=== PATIENT | female | born 1990 | race Caucasian/White ===

== ENCOUNTER 2023-09-12 19:32 | Emergency (ER) | payer BC, SELFPAY ==
[2023-09-12 19:33] VITALS: BP 127/76; PULSE 89; RESP 16; TEMP 36.6; O2SAT 100; BMI 25.7
--- NOTE | 2023-09-12 20:20 | US_ITS ---
We are attempting to reach an attending provider to discuss findings. An addendum with communication details will be sent when the communication is complete. INDICATION: Vaginal bleeding with and RLQ pain EXAMINATION: Ultrasound US OB Transvaginal COMPARISON: None. FINDINGS: 124 grayscale ultrasound images of the pelvis obtained transvaginally. In addition dedicated ovarian color Doppler and Doppler waveform interrogation was performed. UTERUS: Uterus measures : 10.4 x 5.8 x 4.2 cm. Endometrial thickness of 1.1 cm. Trace amount of endometrial fluid as well. Myometrium is unremarkable. ADNEXA: Flow is documented to bilateral ovaries by color Doppler as well as Doppler waveform. Large anechoic 2.4 cm right ovarian lesion consistent with ovarian cyst. Adjacent to this there is a rounded, mildly echogenic, thick-walled lesion containing punctate central cystic focus, suspicious for ectopic . Left ovary is unremarkable. No significant free fluid. US/Transvaginal w/Preg US IMPRESSION: No intrauterine . Adjacent to right ovary, there is a rounded, mildly echogenic, thick-walled lesion containing punctate central cystic focus, suspicious for ectopic . No definite pole appreciated. Electronically Signed: Dionisio Kamara MD at 21:59 EST ,
--- NOTE | 2023-09-12 20:23 | EDS_ITS ---
HPI HPI - Female History of Present Illness Chief Complaint: Vag Bld, Preg Narrative Narrative: 32-year-old female G4, P2 at approximately 4 weeks and 6 days gestation presents with vaginal bleeding and spotting that she had today. She states she did 4 home tests that were positive. She called her [employer] office, and sees the regional economic liaison Carlie Merida. She had laboratory work drawn today, which was basically hormone level. Over time, she developed more vaginal bleeding, less than her usual menses, and pain in her right pelvic area. She denies any fevers or chills, no nausea or vomiting, no other symptoms. She did state that she had upper respiratory infection type symptoms previously and is not sure if this had anything to do with it. PFSH PFSH Home Medications hydrocodone-acetaminophen 5-325mg 5mg-325mg 1 tab PO Q6H PRN PRN Pain 3 days #12 TABLETS 09/12/23 [Rx Last Taken Unknown] Allergy/AdvReac Type Severity Reaction Status Date / Time No Known Allergies Allergy Verified 09/12/23 19:35 Social History Smoking Status: Never smoker ROS ROS ED ROS Narrative Constitutional: No fever, no chills. HEENT: No sore throat. No neck pain. No loss of vision. No rhinorrhea. Cardiovascular: No chest pain. No palpitations. No pedal edema. Respiratory: No cough, no shortness of breath. Abdominal: Right pelvic/abdominal pain. No nausea. No vomiting. Genitourinary: No dysuria. No hematuria. Positive vaginal bleeding. Musculoskeletal: No myalgias. No arthralgias. Neurologic: No headaches. No dizziness. No lightheadedness. Skin: No rash. No change in color. Psychiatric: No depression. No anxiety. EXAM Physical Exam Narrative Exam Narrative: Afebrile. Vital signs noted. HEENT: Normocephalic. Atraumatic. PERRL, EOMI. Neck soft and supple. No point tenderness or step off. Cardiovascular: Regular rate and rhythm. No murmurs, rubs, or gallops appreciated. Respiratory: No tachypnea. Lungs clear to auscultation bilaterally. Gastrointestinal: Abdomen soft, with mild tenderness in right pelvic area. With normoactive bowel sounds. No rebound or guarding. Genitourinary: Chaperoned pelvic examination revealed normal external genitalia. Speculum examination revealed a small amount of blood, old and brown in color with small clots. Os appeared closed. Bimanual examination did reveal os to be closed with mild tenderness to palpation in the right adnexa. Neurological: Awake. Alert. Nonfocal, nonlateralizing. Skin: No rash. Normal color. No pallor. Musculoskeletal: No pedal edema. Full range of motion extremities. Const Vital Signs: 09/12/23 19:33 09/12/23 21:33 Temperature 98 F Temperature Source Temporal Pulse Rate 89 Respiratory Rate 16 16 Blood Pressure 127/76 H Blood Pressure Mean 93 Pulse Ox 100 Oxygen Delivery Method Room Air MDM MDM MDM Narrative Medical decision making narrative: In the differential diagnosis is ectopic versus threatened miscarriage. I have lower concern for acute appendicitis based on her clinical examination and the history and physical is not supportive of this. I do feel that she will require more workup. I reviewed her laboratory work from today. Her beta hCG is only just above 1100. She was told that it would be difficult to see anything intrauterine as her quantitative measurement is below 1800. Additionally, she thinks she may be O+ and her blood type, but ABO Rh will be obtained because after reviewing the EMR there is no evidence that it has been done in the past. I will obtain a CBC and CMP as well, and I do feel ultrasound is indicated. Pelvic exam will also be performed. Chaperoned pelvic examination revealed small clots and a small amount of old blood but no pooling of blood in the vaginal vault. Os did appear closed. This was on bimanual examination. I reviewed her laboratory work and she has a white count normal at 10.7, hemoglobin normal at 12.2, platelet count 205. CMP was obtained and chloride is 109, slightly elevated nonspecific. Glucose appropriately elevated at 100. AST is low at 11 with ALT of 15 and alk phos 61. Urinalysis is negative for infection. I reviewed the radiology report for the ultrasound, transvaginal, which shows no evidence of intrauterine . While she does have an approximate 2.4 cm ovarian cyst on the right, there is a cystlike lesion that is extraovarian adjacent to this concerning for ectopic . I did receive a call from the radiologist regarding this finding. As I had reviewed her blood bank test, she is O+. I do not feel she requires RhoGAM. I discussed the patient with Carlie Merida, certified nurse regional economic liaison, who reviewed the images and also reviewed them with Dr. Null. I received a phone call from Dr. Null with [employer] who states that the patient is a good candidate for methotrexate. I discussed the risks and benefits with the patient and she acknowledges an understanding. She was told not to eat any folate, or green leafy vegetables, and not to take any vitamins. She was also told that she may require an additional dose of methotrexate. I did administer the 2 shots as the dose was calculated by pharmacy. She was told to call the office tomorrow for follow-up and that she will require repeat blood work on days 4 and 7 to ensure downtrending hCGs. She was given 1 [place] tablet here in the emergency department, additionally I wrote her prescription for the next 3 days for her ectopic . I do not feel that she requires admission or observation at this time, but stressed the importance of close follow-up with the [employer]. Disposition is discharged in stable condition. History & Record Review Discussion w/independent historian: Patient and Family () Additional record(s) reviewed:: Prior ED visit Lab Data Attestation: I reviewed the patient's lab results. Labs: Laboratory Results - last 24 hr 09/12/23 09/12/23 20:30 20:35 WBC 10.7 RBC 4.26 Hgb 12.2 Hct 36.4 L MCV 85.4 MCH 28.6 MCHC 33.5 RDW Std Deviation 40.9 RDW Coeff of Doug 13.2 Plt Count 205 MPV 11.5 Immature Gran % (Auto) 0.400 Neut % (Auto) 69.4 Lymph % (Auto) 19.7 [place] % (Auto) 10.0 Eos % (Auto) 0.3 Baso % (Auto) 0.2 Absolute Neuts (auto) 7.4 Absolute Lymphs (auto) 2.10 Nucleated RBC % 0 Sodium 137 Potassium 3.6 Chloride 109 H Carbon Dioxide 25.0 Anion Gap 3 L BUN 7 Creatinine 0.63 Estim Creat Clear Calc 108.01 Est GFR (MDRD) Af Amer 142 Est GFR (MDRD) Non-Af 118 BUN/Creatinine Ratio 11.1 Glucose 100 Calcium 8.9 Total Bilirubin 0.50 AST 11 L ALT 15 Alkaline Phosphatase 61 Total Protein 7.9 Albumin 3.7 Globulin 4.2 Albumin/Globulin Ratio 0.9 Urine Color Yellow Urine Clarity Clear Urine pH 6.0 Ur Specific [place] 1.020 Urine Protein 15 H Urine Glucose (UA) Normal Urine Ketones 5 H Urine Occult Blood 50 H Urine Nitrite Negative Urine Bilirubin Negative Urine Urobilinogen 1 H Ur Leukocyte Esterase 25 H Urine RBC 0-5 SEEN Urine WBC 0-5 SEEN Ur Squamous Epith Cells 0-5 SEEN Urine Bacteria RARE Urine Mucus 1+ Radiography Diagnostic Testing: Clinical Impression(s) from Imaging Studies Obstetrics Ultrasound 09/12/23 20:20 IMPRESSION: No intrauterine . Adjacent to right ovary, there is a rounded, mildly echogenic, thick-walled lesion containing punctate central cystic focus, suspicious for ectopic . No definite pole appreciated. Electronically Signed: Dionisio Kamara MD at 21:59 EST , ADDENDUM: 09/12/232220 IMPRESSION: No intrauterine . Adjacent to right ovary, there is a rounded, mildly echogenic, thick-walled lesion containing punctate central cystic focus, suspicious for ectopic . No definite pole appreciated. N.B. : The above Results were Read Back by Dionisio Kamara MD to Tommy Ca MD, and understanding confirmed on 09/12/2023 22:14:33 (ET). Electronically Signed: Dionisio Kamara MD at 21:59 EST , ADDENDUM: 09/12/232221 IMPRESSION: undefined Discharge Plan Triage Chief Complaint: Vag Bld, Preg ED Provider: Tommy Ca Dx/Rx/DC Orders Clinical Impression: Ectopic Instructions: ED Methotrexate for Ectopic ... Prescriptions: New hydrocodone-acetaminophen 5-325 mg tablet 1 tab PO Q6H PRN PRN (Reason: Pain) 3 Days Qty: 12 0RF Primary Care Provider: Care Physician,No Primary Referrals: Meka Judd DO [Med Staff - Active Staff] - 1 Day Care Physician,No Primary [Primary Care Provider] - Activity Restrictions/Additional Instructions: Call the office of Dr. Null and Carlie Merida tomorrow. You will require additional blood work on days 4 and 7. Disposition Disposition: Home, Self Care
[2023-09-12 20:49] LABS: Absolute Neutrophil Count 7.4 X10^3/uL (2.0-7.7); Basophil# 0.02 X10^3/uL; Basophil% 0.2 % (0-1); Eosinophil# 0.03 X10^3/uL; Eosinophils% 0.3 % (0-5); Hematocrit 36.4 % (37-47); Hemoglobin 12.2 g/dL (12.0-15.0); Lymphocyte % 19.7 % (19-41); Mean Corp Hgb Conc 33.5 g/dL (32-36); Mean Corpuscular Hgb 28.6 pg (27.0-32.0); Mean Corpuscular Volume 85.4 fL (81-99); Mean Platelet Vol. 11.5 fl (6.2-12.0); Monocyte# 1.07 X10^3/uL; NRBC Flagged by Analyzer 0 % (0-5); Neutrophil # 7.42 X10^3/uL (2.7-7.7); Neutrophil % 69.4 % (47-70); Platelet Count 205 K/mm3 (150-450); RBC Distribution Width CV 13.2 % (11.6-14.6); RBC Distribution Width SD 40.9 fl (35.1-43.9); Red Blood Count 4.26 M/mm3 (4.2-5.4); White Blood Count 10.7 K/mm3 (4.4-11.0)
[2023-09-12 21:04] LABS: ALB/GLOB Ratio 0.9 RATIO (0.9-2.4); AST(SGOT) 11 U/L (15-37); Alanine Aminotransfer ALT/SGPT 15 U/L (13-56); Albumin, Serum 3.7 g/dL (3.2-5.0); Alkaline Phosphatase 61 U/L (45-117); Anion Gap 3 (5-15); BUN 7 mg/dL (7-18); BUN/Creat Ratio 11.1 RATIO (10-20); Calcium,Total 8.9 mg/dL (8.5-10.1); Chloride 109 mmol/L (98-107); Creatinine, Serum 0.63 mg/dL (0.55-1.02); EST Glomerular Filtration Rate 118 mL/min (>60); Est Glom Filt Rate - Afr Amer 142 mL/min (>60); Estimated Creatinine Clearance 108.01 ml/min; Globulin 4.2 g/dL (2.2-4.2); Glucose 100 mg/dL (74-106); Potassium 3.6 mmol/L (3.5-5.1); Protein, Total 7.9 g/dL (6.4-8.2); Sodium Level 137 mmol/L (136-145)
[2023-09-12 21:16] LABS: Color, Urine Yellow (Yellow); Glucose, Dipstick Normal (Normal); Ketone-Dipstick 5 mg/dl (Negative); Leukocyte Esterase-Dipstick 25 /ul (Negative); Nitrite-Dipstick Negative (Negative); Occult Blood-Urine 50 /ul (Negative); Protein-Dipstick 15 mg/dl (Negative); Urine Bilirubin Dipstick Negative (Negative); Urine Clarity Clear (Clear); Urine Urobilinogen 1 mg/dl (Normal)
[2023-09-12 21:22] LABS: Bacteria RARE /hpf (None Seen); Mucous, Urine 1+ /hpf (<or=2+); Red Blood Cells-Urine 0-5 SEEN /hpf (0-5); Squamous Epithelial Cells - UA 0-5 SEEN /hpf (5-10); White Blood Cells 0-5 SEEN /hpf (0-5)
[2023-09-12 21:33] VITALS: RESP 16
[2023-09-12] MEDS: 0.9% Normal Saline (1000mL) 1,000 ML 1000 ML IV (22:45)
[2023-09-12] MEDS: HYDROcodone Bitartrate/Apap 5/325 Tablet PO (22:46)
[2023-09-12 23:00] VITALS: RESP 16
== END 2023-09-13 00:23 | disposition home or self-care (01) ==
PROVIDERS: Emergency Provider Emergency Medicine; Visit Provider Emergency Medicine
DX: O00.201 Right ovarian pregnancy without intrauterine pregnancy (principal)
CPT/HCPCS: 76817; 80053; 81001; 85025; 86900; 86901; 96360; 96372; 99283; J7030; A4216; J9250

== ENCOUNTER → 2023-09-12 | Outpatient (CLI) | payer BC, SELFPAY ==
[2023-09-12 12:25] LABS: hCG Titer Quant., Serum 1126 mIU/mL (1-3)
== END | disposition home or self-care (01) ==
LOC: LAB 10:54
PROVIDERS: Referring Provider Registered Nurse; Visit Provider Registered Nurse
DX: N92.0 Excessive and frequent menstruation with regular cycle (principal)
CPT/HCPCS: 36415; 84702

== ENCOUNTER → 2023-09-15 | Outpatient (CLI) | payer BC, SELFPAY ==
[2023-09-15 12:05] LABS: hCG Titer Quant., Serum 821 mIU/mL (1-3)
== END | disposition home or self-care (01) ==
LOC: LAB 10:06
PROVIDERS: Referring Provider Registered Nurse; Visit Provider Registered Nurse
DX: O00.90 Unspecified ectopic pregnancy without intrauterine pregnancy (principal); O99.891 Other specified diseases and conditions complicating pregnancy; N92.0 Excessive and frequent menstruation with regular cycle
CPT/HCPCS: 36415; 84702

== ENCOUNTER → 2023-09-19 | Outpatient (CLI) | payer BC, SELFPAY ==
--- NOTE | 2023-09-19 09:02 | US_ITS ---
STUDY: FIRST TRIMESTER OBSTETRICAL ULTRASOUND REASON FOR EXAM: Female, 32 years old follow-up ectopic LMP: August 09, 2023. TECHNIQUE: Transvaginal TECHNICAL QUALITY: Adequate. PRIOR ULTRASOUND: Comparison is made with prior examination dated September 12, 2023. FINDINGS: There is an extrauterine (ectopic) gestational sac. There is no demonstrated yolk sac. The placenta is non-visualized. There is no demonstrated embryo ( pole). The estimated gestation age (EGA) by LMP is 5 weeks, 6 days. The estimated date of delivery (JASIEL) by LMP is May 15, 2024 The uterus measures 9 cm x 6 cm x 3.7 cm. There is no demonstrated uterine fibroid. The cervix is closed. The right ovary measures 4.7 cm x 3.6 x 2.6 cm. Persistent right adnexal mass measuring 4.2 cm x 3.5 cm x 3 cm. This is suggestive of an ectopic . There is also evidence of a 2.1 cm x 2 cm x 1.5 cm cyst. The left ovary measures 2.8 cm x 2.3 x 2 x 1.5 cm. There is no left ovarian cyst. There is no visualized left adnexal mass or complex lesion. There is a moderate amount of fluid in the cul de sac. US/Transvaginal w/Preg US IMPRESSION: Persistent solid mass in the right adnexa which has increased in size. This is suggestive of progressive ectopic . Moderate amount of free fluid in the pelvis. Electronically Signed: Dom Hand MD at 10:46 EST ,
[2023-09-19 10:35] LABS: hCG Titer Quant., Serum 428 mIU/mL (1-3)
== END | disposition home or self-care (01) ==
PROVIDERS: Registered Nurse; Referring Provider Obstetrics & Gynecology; Visit Provider Obstetrics & Gynecology
DX: O00.90 Unspecified ectopic pregnancy without intrauterine pregnancy (principal)
CPT/HCPCS: 36415; 76817; 84702

== ENCOUNTER → 2023-09-27 | Outpatient (CLI) | payer BC, SELFPAY ==
[2023-09-27 13:36] LABS: hCG Titer Quant., Serum 58 mIU/mL (1-3)
== END | disposition home or self-care (01) ==
LOC: LAB 11:25
PROVIDERS: Referring Provider Obstetrics & Gynecology; Visit Provider Obstetrics & Gynecology
DX: O00.90 Unspecified ectopic pregnancy without intrauterine pregnancy (principal)
CPT/HCPCS: 36415; 84702

== ENCOUNTER → 2023-10-04 | Outpatient (CLI) | payer BC, SELFPAY ==
[2023-10-04 12:14] LABS: Bacteria 0 SEEN /hpf (None Seen); Mucous, Urine 0 SEEN /hpf (<or=2+); Red Blood Cells-Urine 0 SEEN /hpf (0-5)
[2023-10-04 13:23] LABS: Color, Urine Yellow (Yellow); Glucose, Dipstick Normal (Normal); Ketone-Dipstick Negative (Negative); Leukocyte Esterase-Dipstick Negative /ul (Negative); Nitrite-Dipstick Negative (Negative); Occult Blood-Urine 150 /ul (Negative); Protein-Dipstick Negative (Negative); Urine Bilirubin Dipstick Negative (Negative); Urine Clarity Clear (Clear); Urine Urobilinogen Normal (Normal)
[2023-10-04 13:31] LABS: Squamous Epithelial Cells - UA 0-5 SEEN /hpf (5-10); White Blood Cells 0-5 SEEN /hpf (0-5)
[2023-10-04 13:48] LABS: hCG Titer Quant., Serum 8 mIU/mL (1-3)
== END | disposition home or self-care (01) ==
LOC: LAB 11:57
PROVIDERS: Advanced Practice Midwife; Referring Provider Nurse Practitioner Women's Health; Visit Provider Nurse Practitioner Women's Health
DX: O00.90 Unspecified ectopic pregnancy without intrauterine pregnancy (principal); O99.891 Other specified diseases and conditions complicating pregnancy; M54.50 Low back pain, unspecified; R30.0 Dysuria
CPT/HCPCS: 36415; 81001; 84702; 87086

== ENCOUNTER → 2023-10-07 | Outpatient (CLI) | payer BC, SELFPAY ==
--- NOTE | 2023-10-07 13:26 | US_ITS ---
STUDY: FIRST TRIMESTER OBSTETRICAL ULTRASOUND REASON FOR EXAM: Female, 32 years old pelvic and back pain, recent ectopic LMP: 08/09/2023 TECHNIQUE: Transvaginal TECHNICAL QUALITY: Adequate. PRIOR ULTRASOUND: 09/12/2023, 09/19/2023 FINDINGS: There is no demonstrated intrauterine gestational sac. A previously noted ectopic in the right adnexal region has changed in size since the previous study as it again measures approximately 5.1 x 4.6 x 1.8 cm. However, it has become much more cystic than on the previous study though there is a persistent rim of hyperemia and a pseudosac. Continued follow-up recommended to assure complete resolution. The uterus measures 9.3 x 5.7 x 3.9 cm. There is no demonstrated uterine fibroid. The cervix is closed. The right ovary measures 5.6 x 4.5 x 4.1 cm.. There is a previously noted cyst which has increased in size from 2.1 cm on the previous study to 4.1 cm on current study. The left ovary measures 3.2 x 3.0 x 1.8 cm. There is no left ovarian cyst. There is no visualized left adnexal mass or complex lesion. There is minimal fluid in the cul de sac. US/Transvaginal w/Preg US IMPRESSION: Likely resolving ectopic in the right adnexal region. Although its size at 5.1 x 4.6 x 1.8 cm remains the same, it is much more cystic than solid on current study. However there is a persistent pseudosac, and hyperemia around its periphery.. . Continued follow-up recommended to ensure complete resolution. Sonographically normal uterus, no sonographic evidence of intrauterine gestation Increase in size of a previously noted right ovarian cyst. It is increased from 2.1 cm on the previous study of 4.1 cm on current study. Sonographically normal left ovary Minimal free fluid in the cul-de-sac Electronically Signed: Jason Belle MD at 14:36 EST ,
--- OUTSIDE RECORDS SUMMARY | 2023-10-07 13:50 | XMS RPT_ITS | CCD ---
Author Name Unknown Address [address] [place] [address] Organization [facility] Care Team Providers Care Marketing Systems Analyst Name Role Phone Mayra Plasencia MD Primary Care Provider Unavail able BEVERLY CASTILLO Primary Care Unavailable Medications Current Medications Medication Drug Class(es) Dates Sig (Normalized) Sig (Original) fluticasone propionate 0.05 mg/actuat metered dose nasal spray (1 source) Corticosteroid Start: 03-25-2021 fluticasone (FLONASE) 50 MCG/ACT nasal spray Indications: Acute maxillary sinusitis, recurrence not specified 1 spray by Nasal route daily 1 Bottle 0 03/25/2021 Active imiquimod 50 mg/ml topical cream (1 source) Start: 07-20-2021 End: 07-27-2021 imiquimod (ALDARA) 5 % cream Indications: Viral warts, unspecified type Apply topically three times a week. 12 each 1 07/20/2021 07/27/2021 Active naproxen 500 mg oral tablet (1 source) Nonsteroidal Anti-inflammatory Drug Start: 10-16-2017 take 1 tablet by mouth twice daily naproxen (NAPROSYN) 500 MG tablet Take 1 tablet by mouth 2 times daily 30 tablet 0 10/16/2017 Active omeprazole 20 mg delayed release oral capsule (1 source) Proton Pump Inhibitor Start: 10-02-2016 take 1 capsule by mouth once daily omeprazole (PRILOSEC) 20 MG delayed release capsule Take 1 capsule by mouth daily 30 capsule 1 10/02/2016 Active tretinoin 0.5 mg/ml topical cream (1 source) Retinoid Start: 07-20-2021 End: 08-19-2021 tretinoin (RETIN-A) 0.05 % cream Indications: Acne vulgaris Apply topically nightly. 1 each 0 07/20/2021 08/19/2021 Active Problems Active Problems Problem Classification Problem Date Documented Da te Episodic/Chronic Nonspecific chest pain (1 source) Other chest pain; Translations: [Other chest pain] Onset: 07-21-2022 Episodic Past or Other Problems Problem Classification Problem Date Documented Da te Episodic/Chronic Other upper respiratory infections (2 sources) Acute maxillary sinusitis; Translations: [Acute maxillary sinusitis, unspecified] Onset: 03-25-2021 03-25-2021 Episodic Results Test Name Value Interpretation Reference Range Facil ity Encounters Encounter Date Encounter Type Care Provider Facility Start: 07-21-2022 End: 07-21-2022 Emergency department patient visit BEVERLY Marva [facility] Start: 07-22-2021 End: 07-22-2021 Patient encounter procedure Malz [facility] Start: 07-22-2021 End: 07-22-2021 Subsequent hospital visit by physician [facility] Procedures Date Procedure Procedure Detail Performing Clinician Start: 07-22-2021 Comprehensive metabo lic panel Clary Iniguez SALESPERSON [employer] Work Phone: Start: 07-22-2021 Lipid panel Clary hudson [employer] Work Phone: Plan of Treatment Date Care Activity Detail Author Start: 06-03-2021 Influenza vaccination Flu vaccine (# 1) [email or web address] Phone: Start: 05-02-2019 DTaP/Tdap/Td vaccine (3 - Td or Tdap) DTaP/Tdap/Td vaccine (3 - Td or Tdap) [email or web address] Phone: Start: 2013 Screening for malign ant neoplasm of cervix Pap smear [email or web address] Phone: Start: 2004 COVID-19 Vaccine (1) COVID-19 Vaccin e (1) [email or web address] Phone: Start: 1993 Varicella vaccine (1 of 2 - 2-dose childhood series) Varicella vaccine (1 of 2 - 2-dose childhood series) [email or web address] Phone: Start: 1992 Hepatitis C screening Hepatitis C sc [facility] [email or web address] Phone: Payers Date Payer Category Payer Unknown [id number] 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 (finding) [email or web address] Phone: Start: 07-20-2021 Alcohol intake [employer] Phone: Start: 07-20-2021 History SDOH Financial 5 [email or web address] Phone: Start: 07-20-2021 History SDOH Food Worry 1 [email or web address] Phone: Start: 1992 Sex Assigned At Not on file [employer] Phone: Evaluation note Note Date & Type Note Facility documented in this encounter [email or web address] Phone: Summary Purpose Family History No Family History Records FoundNo Family History Records Found Advance Directives No Advanced Directives Records FoundDocuments on File Type Date Recorded Patient Log Clerk Expl anation ACP-Advance Directive ACP-Power of Community Administrator Additional Source Comments INFORMATION SOURCE (unrecogn ized section and content) DATE CREATED AUTHOR AUTHOR'S ORGANIZ ATION 07/26/2022 [employer] [facility] FOR RECORDS PERTAINING TO PATIENTS WHO ARE OR HAVE BEEN ENROLLED IN A CHEMICAL DEPENDENCY/SUBSTANCEABUSE PROGRAM, SOME INFORMATION MAY BE OMITTED. This clinical summary was aggregated from multiple sources. Caution should be exercised in using it in the provision of clinical care. This summary normalizes information from multiple sources, and as a consequence, information in this document may materially change the coding, format and clinical context of patient data. In addition, data may be omitted in some cases. CLINICAL DECISIONS SHOULD BE BASED ON THE PRIMARY CLINICAL RECORDS. [facility] [employer] [facility]. provides no warranty or guarantee of the accuracy or completeness of information in this document.
[2023-10-07 15:09] LABS: hCG Titer Quant., Serum 4 mIU/mL (1-3)
== END | disposition home or self-care (01) ==
PROVIDERS: Referring Provider Obstetrics & Gynecology; Visit Provider Obstetrics & Gynecology
DX: N92.0 Excessive and frequent menstruation with regular cycle (principal)
CPT/HCPCS: 36415; 76817; 84702

== ENCOUNTER → 2023-11-18 | Outpatient (CLI) | payer BC, SELFPAY ==
--- NOTE | 2023-11-18 18:24 | US_ITS ---
EXAM: US PELVIS TRANSABDOMINAL AND TRANSVAGINAL, COMPLETE CLINICAL INDICATION: pelvic pain TECHNIQUE: Transabdominal and transvaginal pelvic ultrasound was performed with grayscale and color Doppler imaging. Transvaginal imaging was used for better evaluation of the endometrium and adnexa. COMPARISON: No relevant prior studies available. FINDINGS: UTERUS/CERVIX: The uterus measures 9.3 x 3.9 x 5.6 cm. The endometrium measures 4 mm. Anteverted. There is no uterine mass. RIGHT OVARY: The right ovary measures 3.2 x 2.4 x 3.4 cm. Blood flow is present in the right ovary. LEFT OVARY: The left ovary measures 2.2 x 1.8 x 2.8 cm. Blood flow is present in the left ovary. FREE FLUID: None. BLADDER: Bladder measures 13.7 x 10.9 x 10.6 cm for volume of 823 mL. US/Pelvic w/ Transvaginal IMPRESSION: No acute findings in the pelvis. Electronically Signed: Jerry Allen MD at 23:55 EST ,
--- OUTSIDE RECORDS SUMMARY | 2023-11-18 18:26 | XMS RPT_ITS | CCD ---
Author Name Unknown Address [address] [place] [address] Organization [facility] Care Team Providers Care Computer Clerk Name Role Phone Mayra Plasencia MD Primary [...] 07-21-2022 Emergency department patient visit BEVERLY Marva [facility] Start: 07-22-2021 End: 07-22-2021 Patient encounter procedure Mal[facility] Start: 07-22-2021 End: 07-22-2021 Subsequent hospital visit by physician [facility] Procedures Date Procedure Procedure Detail Performing Clinician Start: 07-22-2021 Comprehensive metabo lic panel Clary Iniguez [employer]ERIES MANAGER - GEOPHYSICS TEACHER Work Phone: Start: 07-22-2021 Lipid panel Clary hudson [employer] MANAGER - GEOPHYSICS TEACHER Work Phone: Plan of Treatment Date Care Activity Detail Author Start: 06-03-2021 Influenza vaccination Flu vaccine (# 1) [employer] Phone: Start: 05-02-2019 DTaP/Tdap/Td vaccine (3 - Td or Tdap) DTaP/Tdap/Td vaccine (3 - Td or Tdap) [employer] Phone: Start: 2013 Screening for malign ant neoplasm of cervix Pap smear [employer] Phone: Start: 2004 COVID-19 Vaccine (1) COVID-19 Vaccin e (1) [employer] Phone: Start: 1993 Varicella vaccine (1 of 2 - 2-dose childhood series) Varicella vaccine (1 of 2 - 2-dose childhood series) [employer] Phone: Start: 1992 Hepatitis C screening Hepatitis C sc [facility] [employer] Phone: Payers Date Payer Category Payer Unknown 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 (finding) [employer] Phone: Start: 07-20-2021 Alcohol intake [employer] Phone: Start: 07-20-2021 History SDOH Financial 5 [employer] Phone: Start: 07-20-2021 History SDOH Food Worry 1 [employer] Phone: Start: 1992 Sex Assigned At Not on file M [employer] Phone: Evaluation note Note Date & Type Note Facility documented in this encounter [employer] Phone: Summary Purpose Family History No Family History Records FoundNo Family History Records Found Advance Directives No Advanced Directives Records FoundDocuments on File Type Date Recorded Patient Parts Analyst Expl anation ACP-Advance Directive ACP-Power of Practice Assistant Additional Source Comments INFORMATION SOURCE (unrecogn ized section and content) DATE CREATED AUTHOR AUTHOR'S ORGANIZ ATION 07/26/2022 [employer] [facility] FOR RECORDS PERTAINING TO PATIENTS WHO ARE [...] BE BASED ON THE PRIMARY CLINICAL RECORDS. [facility] [employer] [facility]. provides no warranty or guarantee of the accuracy or completeness of information in this document.
== END | disposition home or self-care (01) ==
PROVIDERS: Visit Provider Obstetrics & Gynecology
DX: N83.209 Unspecified ovarian cyst, unspecified side (principal); R10.2 Pelvic and perineal pain
CPT/HCPCS: 76830; 76856

== ENCOUNTER → 2024-02-07 | Outpatient (CLI) | payer BC, SELFPAY ==
[2024-02-12 21:06] LABS: HPV APTIMA, High Risk Negative (Negative)
== END | disposition home or self-care (01) ==
PROVIDERS: Visit Provider Nurse Practitioner Women's Health
DX: Z12.4 Encounter for screening for malignant neoplasm of cervix (principal)
CPT/HCPCS: 87624; 88175; G0145

== ENCOUNTER → 2025-02-18 | Outpatient (CLI) | payer BC, SELFPAY ==
[2025-02-18 11:24] LABS: hCG Titer Quant., Serum 19 mIU/mL (<9 non-preg)
== END | disposition home or self-care (01) ==
LOC: LAB 10:18
PROVIDERS: Referring Provider Obstetrics & Gynecology; Visit Provider Obstetrics & Gynecology
DX: N91.2 Amenorrhea, unspecified (principal)
CPT/HCPCS: 36415; 84702

== ENCOUNTER → 2025-02-20 | Outpatient (CLI) | payer BC, SELFPAY ==
[2025-02-20 11:53] LABS: hCG Titer Quant., Serum 7 mIU/mL (<9 non-preg)
== END | disposition home or self-care (01) ==
LOC: LAB 10:09
PROVIDERS: Referring Provider Obstetrics & Gynecology; Visit Provider Obstetrics & Gynecology
DX: N91.2 Amenorrhea, unspecified (principal)
CPT/HCPCS: 36415; 84702

== ENCOUNTER → 2025-03-29 | Outpatient (CLI) | payer BC, SELFPAY ==
[2025-03-29 17:27] LABS: Hemoglobin A1c 5.2 % (<=5.6)
[2025-03-29 17:36] LABS: Thyroid Stim Hormone (TSH) 0.763 uIU/mL (0.300-4.200)
[2025-04-02 14:08] LABS: Anti-Cardiolipin Ab, IgG, Qn < 9 GPL U/mL (0-14); Anti-Cardiolipin Ab, IgM, Qn < 9 MPL U/mL (0-12); Beta-2-Glycoprotein I IgA <9 (0-25); Beta-2-Glycoprotein I IgG <9 (0-20); Beta-2-Glycoprotein I IgM <9 (0-32); Dilute Prothrombin Time (dPT) 42.6 sec (0.0-47.6); Dilute Russell Viper Venom 41.4 sec (0.0-47.0); Interpretation Comment: (.); PTT-LA 38.6 sec (0.0-43.5); Thrombin Time 19.6 sec (0.0-23.0); dPT Confirm Ratio 1.19 Ratio (0.00-1.34)
== END | disposition home or self-care (01) ==
PROVIDERS: Referring Provider Obstetrics & Gynecology; Visit Provider Obstetrics & Gynecology
DX: N96 Recurrent pregnancy loss (principal)
CPT/HCPCS: 36415; 83036; 84443; 86146; 86147